=== PATIENT | female | born 1975 | race African-American/Black ===

== ENCOUNTER 2021-01-05 06:51 | Outpatient (NON) | payer OTHER, SELFPAY ==
[2021-01-05 18:10] LABS: SARS-CoV-2 RNA PCR Negative
== END 2021-01-05 06:52 ==
LOC: ANHCOVIDDT 06:51
PROVIDERS: PCP Family Medicine; Visit Provider Physician Assistant
DX: R68.89 Other general symptoms and signs (principal); Z20.822 Contact with and (suspected) exposure to COVID-19
CPT/HCPCS: C9803; U0003; U0005

== ENCOUNTER 2021-02-01 14:32 | Outpatient (CLI) | payer OTHER, SELFPAY | END 2021-02-01 14:33 | disposition home or self-care (01) | LOC: ANHCOVIDVC 14:32 | PROVIDERS: PCP Family Medicine | DX: Z23 Encounter for immunization (principal) | CPT/HCPCS: 0001A; 91300 ==

== ENCOUNTER 2021-02-22 14:34 | Outpatient (CLI) | payer OTHER, SELFPAY | END 2021-02-22 14:35 | disposition home or self-care (01) | LOC: ANHCOVIDVC 14:34 | PROVIDERS: PCP Family Medicine | DX: Z23 Encounter for immunization (principal) | CPT/HCPCS: 0002A; 91300 ==

== ENCOUNTER 2025-11-30 13:27 | Emergency (ER) | payer OTHER, SELFPAY ==
[2025-11-30 13:36] VITALS: BP 139/87; PULSE 64; RESP 16; TEMP 36.1; O2SAT 97
--- NOTE | 2025-11-30 14:31 | ED.UPPEXIN ---
HPI - Extremity Injury (Upper) General Chief Complaint: Extremity Injury, Upper Stated Complaint: L point finger swollen Time Seen by Provider: 11/30/25 14:31 Source: patient Mode of arrival: ambulatory Limitations: no limitations History of Present Illness HPI narrative: 50 yo F presents with pain to L middle finger with swelling and redness. All systems reviewed and negative except as noted above. Related Data Home Medications ?Medication ?Instructions ?Recorded ?Confirmed ?Last Taken ?Type metoprolol succinate 25 mg 75 mg PO DAILY 06/25/21 11/30/25 Unknown History tablet,extended release 24 hr psyllium husk 0.52 gram capsule 1.04 g PO DAILY 06/25/21 11/30/25 Unknown History (Metamucil) triamcinolone acetonide 55 mcg 1 spray intranasal DAILY 06/25/21 11/30/25 Unknown History nasal spray aerosol (Nasacort) alprazolam 1 mg tablet 1 mg PO DAILY 04/01/24 11/30/25 Unknown History quetiapine 100 mg tablet (Seroquel) 100 mg PO QHS 10/05/25 11/30/25 Unknown History Allergies Allergy/AdvReac Type Severity Reaction Status Date / Time azithromycin Allergy Unknown Unknown Verified 11/30/25 14:38 solifenacin AdvReac Severe Hives Verified 11/30/25 14:38 adhesive AdvReac Unknown ITCHING AT Verified 11/30/25 14:38 SITE [facility] Past Medical History Medical History Kidney mass Chronic renal insufficiency, stage III (moderate) Encounter for immunization Depression Anxiety Essential hypertension Inattention Iron deficiency anemia Mild intermittent asthma without complication Mixed hyperlipidemia Obstructive sleep apnea syndrome Pre-diabetes Vitamin D deficiency Surgical History Surgical History S/P endometrial ablation Previous section History of hysterectomy Family History Family History Grandparent Diabetes mellitus Cerebrovascular accident Mother Family history of hypercholesterolemia Hypertension Other Family history of cardiomyopathy Social History Social History Smoking status: Former smoker Second hand tobacco smoke exposure: No Alcohol intake: current Substance use: never Substance use type: does not use Lack of Transportation: No Lack of Food: Never True Current Housing: I Have Housing Concerned About Future Housing: No Difficulty Paying Gas/Electric Bills: No Difficulty Paying for Meds: No Currently Unemployed: No Education: Master's Degree or Higher Difficulty w/ Childcare or Family Care: No Gender identity (if verbalized by the patient): Female Spiritual care concerns: No Agree to blood products: Yes Comments At time of signature, agree with nursing past medical, surgical, social and family history. There is no relevant family history pertinent to the presenting complaint. Exam Narrative: GENERAL: This is a well-nourished, well-developed patient, in no apparent distress. HEAD: normocephalic, atraumatic. EYES: PERRL. Sclera clear/white. Vision is grossly intact. EARS: External ears normal NOSE: External nose normal NECK: Neck supple, non-tender without lymphadenopathy, masses or thyromegaly. CARDIOVASCULAR: Regular rate and rhythm without murmurs, gallops, or rubs. RESPIRATORY: Clear to auscultation. Breath sounds equal bilaterally. No wheezes, rales, or rhonchi. SKIN: warm, Dry, intact with no suspicious lesions or rash, good texture and turgor. erythema and swelling L middle finger medial aspect. no abscess or parochyia noted. NEURO: awake, alert, and oriented to person, place and time. There were no obvious focal neurologic abnormalities. EXTREMITIES: No joint tenderness, effusion, or edema noted. Course Course Level of Care: Express Care Visit Vital Signs Vital signs: Vital Signs Temperature 36.1 C L 11/30/25 13:36 Pulse Rate 64 11/30/25 13:36 Respiratory Rate 16 11/30/25 13:36 Blood Pressure 139/87 11/30/25 13:36 Pulse Oximetry 97 11/30/25 13:36 Oxygen Delivery Room Air 11/30/25 13:36 Temperature 36.1 C L 11/30/25 13:36 Pulse Rate 64 11/30/25 13:36 Respiratory Rate 16 11/30/25 13:36 Blood Pressure 139/87 11/30/25 13:36 Pulse Oximetry 97 11/30/25 13:36 Oxygen Delivery Room Air 11/30/25 13:36 Reviewed MDM MDM Narrative Medical decision making narrative: will treat with cephalexin for cellulitis. Normal Range of motion and neurovascularly intact to left middle finger. Differential Diagnosis Differential Diagnosis: Differential diagnostic considerations for skin/abscess/foreign body issues include abscess of skin or subcutaneous tissue, viral exanthem, dermatophytosis, urticaria, herpes zoster, allergic reaction to drug, cellulitis, eczema, insect bites, impetigo, contact dermatitis, vasculitis. Discharge Plan Discharge Clinical Impression: Cellulitis of left middle finger Patient Disposition: Home Condition: Stable Instructions: Antibiotic Form, Cellulitis (ED) Additional Instructions: Take antibiotic as prescribed until gone. Take ibuprofen or Tylenol every 6-8 hours as needed for pain. See your doctor if not improving. Patient Language: Welsh Prescriptions: New cephalexin 500 mg capsule 500 mg PO Q6H 7 Days Qty: 28 0RF No Action metoprolol succinate 25 mg tablet extended release 24 hr 75 mg PO DAILY quetiapine [Seroquel] 100 mg tablet 100 mg PO QHS triamcinolone acetonide [Nasacort] 55 mcg aerosol,spray 1 spray intranasal DAILY Rx Instructions: administer into each nostril psyllium husk [Metamucil] 0.52 gram capsule 1.04 g PO DAILY alprazolam 1 mg tablet 1 mg PO DAILY atorvastatin 20 mg tablet 20 mg PO DAILY Qty: 30 0RF albuterol sulfate [ProAir HFA] 90 mcg/actuation HFA aerosol inhaler 1 inh inhalation Q4H PRN (Reason: shortness of breath or wheezing) Qty: 8.5 5RF Advair HFA 115-21 mcg/actuation HFA aerosol inhaler 2 puff INHALATION BID Qty: 3 3RF scopolamine base 1 mg over 3 days patch 3 day 1 patch transdermal Q3D PRN (Reason: motion sickness) Qty: 4 0RF valacyclovir 500 mg tablet 500 mg PO DAILY Qty: 90 3RF Imvexxy Maintenance Pack 4 mcg insert 4 mcg vaginal 2XW Qty: 24 0RF losartan 25 mg tablet 25 mg PO DAILY Qty: 90 3RF amlodipine 5 mg tablet See Rx Instructions .ROUTE .COMPLEX Qty: 90 1RF Dose Instruction: TAKE 1 TABLET BY MOUTH EVERY DAY Rx Instructions: TAKE 1 TABLET BY MOUTH EVERY DAY Wegovy 1.7 mg/0.75 mL pen injector 1.7 mg subcut WEEKLY Qty: 3 0RF Rx Instructions: administer weeks 13 through 16 of therapy Follow-up/Referrals: PHYSICIAN,[employer] [Primary Care Provider, Internal Medicine] Time of Disposition: 14:35
== END 2025-11-30 14:40 | disposition home or self-care (01) ==
PROVIDERS: Emergency Provider Nurse Practitioner Family
DX: L03.012 Cellulitis of left finger (principal); E55.9 Vitamin D deficiency, unspecified; R73.03 Prediabetes; G47.33 Obstructive sleep apnea (adult) (pediatric); E78.2 Mixed hyperlipidemia; J45.20 Mild intermittent asthma, uncomplicated; D50.9 Iron deficiency anemia, unspecified; F41.8 Other specified anxiety disorders; I12.9 Hypertensive chronic kidney disease with stage 1 through stage 4 chronic kidney disease, or unspecified chronic kidney disease; N18.30 Chronic kidney disease, stage 3 unspecified
CPT/HCPCS: 99213; G0463